=== PATIENT | female | born 1995 | race Caucasian/White ===

== ENCOUNTER 2025-03-24 17:58 | Emergency (ER) | payer SELFPAY ==
[~2025-03-24] VITALS: Ht 167.6 cm; Wt 73.0 kg
[2025-03-24 18:05] VITALS: O2SAT 99
[2025-03-24] MEDS: ONDANSETRON HCL 4MG/2ML INJ IV ONE (18:45)
[2025-03-24] MEDS: SODIUM CHLORIDE 0.9% 1,000 ML IV ONE (18:45)
[2025-03-24] MEDS: MORPHINE SULFATE 4 MG/ML INJ (FOR IV/IM USE) IV ONE (19:04)
[2025-03-24] MEDS: KETOROLAC 15MG/ML VIAL IV ONE (19:04)
[2025-03-24 19:27] LABS: BASOPHILS % 0.7 % (0.0-2.0); EOSINOPHILS % 0.9 % (0.0-5.0); HEMATOCRIT. 32.8 % (36.0-48.0); HEMOGLOBIN. 10.7 g/dL (12.0-16.0); LYMPHOCYTES % 20.2 % (20.0-50.0); MEAN PLATELET VOLUME 7.9 fl (7.4-10.4); MONOCYTES % 4.6 % (2.0-8.0); NEUTROPHILS % 73.6 % (40.0-76.0); PLATELET 276 x1000/uL (130-400); RED BLOOD CELL COUNT 3.96 mill/uL (4.2-5.4); RED CELL DISTRIBUTION WIDTH 13.6 % (11.6-14.6)
[2025-03-24 19:28] LABS: *AMPHETAMINES SCREEN URINE NEGATIVE (NEGATIVE); *BENZODIAZEPINES SCREEN URINE NEGATIVE (NEGATIVE)
[2025-03-24 19:29] LABS: *BARBITURATES SCREEN URINE NEGATIVE (NEGATIVE); *COCAINE SCREEN URINE NEGATIVE (NEGATIVE); CANNABINOID URINE SCREEN NEGATIVE (NEGATIVE); ECSTASY MDMA SCREEN URINE NEGATIVE (NEGATIVE); METHADONE URINE SCREEN NEGATIVE (NEGATIVE); OPIATES URINE SCREEN NEGATIVE (NEGATIVE); PHENCYCLIDINE URINE SCREEN NEGATIVE (NEGATIVE)
[2025-03-24 19:37] LABS: CLARITY URINE CLEAR (CLEAR); COLOR URINE YELLOW (YELLOW); GLUCOSE URINE NEGATIVE (NEGATIVE); KETONES URINE NEGATIVE (NEGATIVE); NITRITE URINE NEGATIVE (NEGATIVE); OCCULT BLOOD URINE 3+ (NEGATIVE); PH URINE 8.0 (4.5-8.0); PROTEIN URINE TRACE (NEGATIVE); SPECIFIC GRAVITY URINE 1.014 (1.005-1.030); UROBILINOGEN URINE 0.2 E.U./dL (0.2-1.0)
[2025-03-24 19:38] LABS: UREA NITROGEN BLOOD 9 mg/dL (9-23)
[2025-03-24 19:38] LABS: LEUKOCYTE ESTERASE URINE 2+ (NEGATIVE)
[2025-03-24 19:39] LABS: CREATININE 0.6 mg/dL (0.6-1.0)
[2025-03-24 19:40] LABS: ASPARTATE AMINOTRANSFERASE 58 IU/L (<34)
[2025-03-24 19:41] LABS: BILIRUBIN DIRECT 0.1 mg/dL (<=3.0); BILIRUBIN TOTAL 0.4 mg/dL (0.1-1.0); PROTEIN TOTAL 6.4 g/dL (6.0-8.3)
[2025-03-24 19:53] LABS: HCG SCREEN NEGATIVE
[2025-03-24 20:03] VITALS: TEMP 36.8
[2025-03-24] MEDS ORDERED: ONDA-239 PO (20:30)
[2025-03-24] MEDS ORDERED: HYDR-4001 MT (20:30)
[2025-03-24] MEDS ORDERED: IBUP-1455 MT (20:30)
[2025-03-24 20:44] VITALS: BP 109/46; PULSE 59; RESP 16; O2SAT 100
[2025-03-24 20:44] LABS: BACTERIA URINE 2+; SQUAMOUS EPITHELIAL CELL URINE FEW /lpf (RARE/1+)
[2025-03-24 20:45] LABS: RBC URINE 50-100 /hpf (0-2)
== END 2025-03-24 20:53 | disposition home or self-care (01) ==
LOC: ER 17:58 → CMPBEDREQ 03-25 19:33
DX: R10.10 Upper abdominal pain, unspecified (principal); R11.2 Nausea with vomiting, unspecified; Z79.899 Other long term (current) drug therapy
CPT/HCPCS: 99285; 96374; 96375; 96361; 80076; 80305; 80048; 81003; 81025; 84703; 83690; 83735; 85025; 36415; J1885; J2405; J2270; J7030